=== PATIENT | female | born 1975 | race Caucasian/White ===

== ENCOUNTER 2021-07-12 23:48 | Emergency (ER) | payer SELFPAY | END 2021-07-13 05:07 | disposition home or self-care (01) | LOC: ER1 23:48 | DX: M79.661 Pain in right lower leg (principal); I10 Essential (primary) hypertension; Z86.73 Personal history of transient ischemic attack (TIA), and cerebral infarction without residual deficits; Z88.5 Allergy status to narcotic agent; Z79.01 Long term (current) use of anticoagulants; Z86.718 Personal history of other venous thrombosis and embolism | CPT/HCPCS: 85379; 85610; 85730; 99283 ==